=== PATIENT | female | born 1980 | race African-American/Black ===

== ENCOUNTER 2022-07-26 12:49 | Outpatient (CLI) | payer BC ==
[2022-07-26 14:02] LABS: Anion Gap 13 mmol/L (10-20); BUN (Urea Nitrogen) 15 mg/dL (7.0-18.7); Calc. Creatinine Clearance 0 mL/min (70-130); Calcium 9.3 mg/dL (7.8-10.44); Carbon Dioxide 26 mmol/L (22-29); Chloride 104 mmol/L (98-107); Estimated GFR 90; Glucose 89 mg/dL (70-105); Potassium 4.1 mmol/L (3.5-5.1); Sodium 139 mmol/L (136-145)
== END 2022-07-26 12:50 | disposition home or self-care (01) ==
LOC: CSHLAB 12:49
PROVIDERS: ATTEND Otolaryngology Plastic Surgery within the Head & Neck
DX: Z01.818 Encounter for other preprocedural examination (principal)
CPT/HCPCS: 80048; 85014; 93005; 93010

== ENCOUNTER 2022-07-31 06:40 | Observation (INO) | payer BC ==
[2022-07-31 09:47] VITALS: BMI 38.6
[2022-07-31] MEDS ORDERED: Midazolam HCl 2 mg/2 ml Vial ONE ×2 (10:17→10:53)
[2022-07-31 10:20] LABS: SARS-CoV-2 NAA Rapid Test Not Detected (NotDetected)
[2022-07-31] MEDS ORDERED: Rocuronium Bromide 10 MG/ML (10ML VIAL) ONE (10:53)
[2022-07-31] MEDS ORDERED: Ondansetron PF 4 MG/2 ML Vial ONE (10:53)
[2022-07-31] MEDS ORDERED: PROPOFOL 20 ML ONE ×2 (10:53→11:47)
[2022-07-31] MEDS ORDERED: Dexamethasone 4 mg/ml Vial ONE (10:53)
[2022-07-31] MEDS ORDERED: Fentanyl 250 MCG/5 ML VIAL ONE (10:53)
[2022-07-31] MEDS ORDERED: Lidocaine 1% PF 5 ML VIAL ONE (10:53)
[2022-07-31] MEDS ORDERED: CEFAZOLIN 1 GM VIAL ONE (11:04)
[2022-07-31] MEDS ORDERED: EPINEPHrine 1 MG/ML AMP ONE (11:33)
[2022-07-31] MEDS ORDERED: Fentanyl 100 MCG/2 ML VIAL ONE (12:02)
[2022-07-31] MEDS ORDERED: Ondansetron PF 4 MG/2 ML Vial IVP PRN (12:27)
[2022-07-31] MEDS ORDERED: Acetaminophen 325 MG TAB PO PRN (12:27)
[2022-07-31] MEDS ORDERED: clonazePAM 0.5 MG TAB PO PRN (12:32)
[2022-07-31] MEDS ORDERED: Gabapentin 300 MG CAP PO PRN (12:32)
[2022-07-31] MEDS ORDERED: oxyCODONE/Acetaminophen 5 mg/325 mg Tablet PO PRN (12:34)
[2022-07-31] MEDS ORDERED: HYDROmorphone 0.5 MG/0.5 ML SYRINGE ONE ×3 (13:02→13:59)
[2022-07-31] MEDS: oxyCODONE 5 MG TAB PO PRN ×2 (16:50→21:01)
[2022-07-31] MEDS: Acetaminophen 325 MG TAB PO PRN (21:00)
[2022-07-31] MEDS ORDERED: Calcitriol 0.25 MCG CAP PO SCH (21:00)
[2022-07-31] MEDS ORDERED: PARoxetine 20 MG TAB PO SCH (21:00)
[2022-08-01] MEDS: Acetaminophen 325 MG TAB PO PRN ×2 (01:03→05:31)
[2022-08-01] MEDS: oxyCODONE 5 MG TAB PO PRN ×2 (01:03→05:31)
[2022-08-01 08:07] VITALS: BP 117/64; TEMP 97.9
[2022-08-01] MEDS ORDERED: Amlodipine 5 MG TAB PO SCH (09:00)
[2022-08-01] MEDS ORDERED: Hydrochlorothiazide 25 MG TAB PO SCH (09:00)
[2022-08-01] MEDS ORDERED: Lisinopril 20 MG TAB PO SCH (09:00)
== END 2022-08-01 07:50 | disposition home or self-care (01) ==
LOC: CSHSDC 06:40 → CSHTELE 14:59
PROVIDERS: ADMIT Otolaryngology Plastic Surgery within the Head & Neck; ATTEND Otolaryngology Plastic Surgery within the Head & Neck
PROC: 0GTK0ZZ Resection of Thyroid Gland, Open Approach (ICD-10-PCS; principal; 2022-07-31)
DX: C73 Malignant neoplasm of thyroid gland (principal); E04.2 Nontoxic multinodular goiter; H65.23 Chronic serous otitis media, bilateral; J35.01 Chronic tonsillitis; Z20.822 Contact with and (suspected) exposure to COVID-19; I10 Essential (primary) hypertension; F41.9 Anxiety disorder, unspecified; Z79.899 Other long term (current) drug therapy
CPT/HCPCS: 82310; 83970; 88305; 88307; 88331; J0171; J0690; J1100; J1170; J2250; J2405; J2704; J3010; U0002

== ENCOUNTER 2022-08-03 12:52 | Inpatient (IN) | payer BC ==
[2022-08-03] MEDS ORDERED: Calcium Gluc 4.6 MEQ/10 ML (100 MG/ML) ONE ×2 (13:15→14:07)
[2022-08-03 13:28] LABS: #Basophils 0.1 10x3/uL (0.0-0.2); #Eosinphils 0.1 10x3/uL (0.0-0.5); #Monocytes 0.8 10x3/uL (0.0-1.1); #Neutrophils 4.6 10x3/uL (1.5-8.4); %Basophils 0.6 % (0.0-2.0); %Eosinophils 0.8 % (0.0-6.0); %Lymphocytes 40.8 % (18.0-47.0); %Monocytes 8.6 % (0.0-10.0); %Neutrophils 48.6 % (40.0-75.0); Hemoglobin 11.4 g/dL (12.0-15.5); Mean Corpuscular HGB CONC 33.6 g/dL (32.0-36.0); Mean Corpuscular Hemoglobin 28.6 pg (27.0-33.0); Mean Corpuscular Volume 85.2 fl (81.6-98.3); Mean Platelet Volume 9.8 fl (7.4-10.4); Platelet Count 310 10x3/uL (150-450); RBC Distribution Width 15.1 % (11.5-14.5); Red Blood Cell (RBC) Count 3.98 10x6/uL (3.90-5.03); White Blood Cell (WBC) Count 9.5 10x3/uL (3.5-10.5)
[2022-08-03 13:38] LABS: Phosphorus 5.8 mg/dL (2.3-4.7)
[2022-08-03 13:40] LABS: ALT (SGPT) 304 U/L (8-55); AST (SGOT) 242 U/L (5-34); Albumin 3.7 g/dL (3.5-5.0); Alkaline Phosphatase 172 U/L (40-110); Anion Gap 18 mmol/L (10-20); BUN (Urea Nitrogen) 11 mg/dL (7.0-18.7); Bilirubin, Total 0.7 mg/dL (0.2-1.2); Calc. Creatinine Clearance 0 mL/min (70-130); Carbon Dioxide 25 mmol/L (22-29); Chloride 100 mmol/L (98-107); Estimated GFR 84; Globulin 3.2 g/dL (2.4-3.5); Glucose 97 mg/dL (70-105); Magnesium 1.6 mg/dL (1.6-2.6); Potassium 4.1 mmol/L (3.5-5.1); Protein, Total 6.9 g/dL (6.0-8.3); Sodium 139 mmol/L (136-145)
[2022-08-03 13:45] LABS: Calcium 6.6 mg/dL (7.8-10.44)
[2022-08-03] MEDS ORDERED: Magnesium 2 GM/50 ML BAG (IN WATER) ONE (15:01)
[2022-08-03] MEDS ORDERED: Ondansetron PF 4 MG/2 ML Vial IVP PRN (16:09)
[2022-08-03] MEDS ORDERED: Acetaminophen 650 MG Suppository PR PRN (16:09)
[2022-08-03] MEDS ORDERED: Ondansetron ODT 4 MG TAB PO PRN (16:09)
[2022-08-03] MEDS ORDERED: Acetaminophen 325 MG TAB PO PRN (16:09)
[2022-08-03] MEDS: clonazePAM 0.5 MG TAB PO PRN (17:59)
[2022-08-03 20:08] VITALS: BMI 38.5
[2022-08-03] MEDS: PARoxetine 20 MG TAB PO SCH (20:32)
[2022-08-03] MEDS: Senokot S 8.6-50 MG TAB PO SCH (20:32)
[2022-08-03] MEDS: Acetaminophen/Codeine 30-300mg Tablet PO PRN (21:50)
[2022-08-04 05:17] LABS: #Eosinphils 0.2 10x3/uL (0.0-0.5); #Monocytes 0.7 10x3/uL (0.0-1.1); #Neutrophils 3.6 10x3/uL (1.5-8.4); %Basophils 0.5 % (0.0-2.0); %Eosinophils 2.1 % (0.0-6.0); %Lymphocytes 41.8 % (18.0-47.0); %Monocytes 8.7 % (0.0-10.0); %Neutrophils 46.4 % (40.0-75.0); Hemoglobin 10.6 g/dL (12.0-15.5); Mean Corpuscular HGB CONC 33.7 g/dL (32.0-36.0); Mean Corpuscular Hemoglobin 28.7 pg (27.0-33.0); Mean Corpuscular Volume 85.4 fl (81.6-98.3); Mean Platelet Volume 9.4 fl (7.4-10.4); Platelet Count 290 10x3/uL (150-450); RBC Distribution Width 14.9 % (11.5-14.5); Red Blood Cell (RBC) Count 3.69 10x6/uL (3.90-5.03); White Blood Cell (WBC) Count 7.8 10x3/uL (3.5-10.5)
[2022-08-04 05:19] LABS: ALT (SGPT) 245 U/L (8-55); AST (SGOT) 167 U/L (5-34); Albumin 3.3 g/dL (3.5-5.0); Alkaline Phosphatase 154 U/L (40-110); Anion Gap 18 mmol/L (10-20); BUN (Urea Nitrogen) 9 mg/dL (7.0-18.7); Bilirubin, Total 0.6 mg/dL (0.2-1.2); Calc. Creatinine Clearance 162 mL/min (70-130); Carbon Dioxide 26 mmol/L (22-29); Chloride 100 mmol/L (98-107); Estimated GFR 95; Glucose 95 mg/dL (70-105); Magnesium 1.7 mg/dL (1.6-2.6); Protein, Total 6.3 g/dL (6.0-8.3); Sodium 140 mmol/L (136-145)
[2022-08-04 05:28] LABS: Calcium 6.6 mg/dL (7.8-10.44)
[2022-08-04] MEDS ORDERED: CALCIUM GLUC 1 GM/NS 50 ML 1 GM in Premix Bag 1 BAG IVPB SCH (06:00)
[2022-08-04] MEDS ORDERED: Calcitriol 0.25 MCG CAP PO SCH (09:00)
[2022-08-04] MEDS ORDERED: Amlodipine 5 MG TAB PO SCH ×2 (09:00)
[2022-08-04] MEDS ORDERED: Lisinopril/Hydrochlorothiazide 20 mg/12.5 mg Tablet PO SCH (09:00)
[2022-08-04 09:36] LABS: Free T4 (Free Thyroxine) 0.9 ng/dL (0.70-1.48); Thyroid Stimulating Hormone 1.5108 uIU/mL (0.35-4.94)
[2022-08-04] MEDS: Lisinopril 20 MG TAB PO SCH (09:43)
[2022-08-04] MEDS: Hydrochlorothiazide 25 MG TAB PO SCH (09:43)
[2022-08-04] MEDS: Gabapentin 300 MG CAP PO SCH ×2 (09:44→20:58)
[2022-08-04] MEDS: Senokot S 8.6-50 MG TAB PO SCH ×2 (09:48→20:59)
[2022-08-04] MEDS: Calcitriol 0.25 MCG CAP PO SCH (20:58)
[2022-08-04] MEDS: Calcium Citrate 950 MG (200MG) TAB PO SCH (20:59)
[2022-08-04] MEDS: PARoxetine 20 MG TAB PO SCH (20:59)
[2022-08-04] MEDS: clonazePAM 0.5 MG TAB PO PRN (21:01)
[2022-08-04] MEDS: Acetaminophen/Codeine 30-300mg Tablet PO PRN (21:12)
[2022-08-05 05:09] LABS: #Eosinphils 0.2 10x3/uL (0.0-0.5); #Monocytes 0.6 10x3/uL (0.0-1.1); #Neutrophils 3.3 10x3/uL (1.5-8.4); %Basophils 0.6 % (0.0-2.0); %Eosinophils 3.2 % (0.0-6.0); %Lymphocytes 42.8 % (18.0-47.0); %Monocytes 7.7 % (0.0-10.0); %Neutrophils 45.1 % (40.0-75.0); Hemoglobin 10.6 g/dL (12.0-15.5); Mean Corpuscular HGB CONC 32.9 g/dL (32.0-36.0); Mean Corpuscular Hemoglobin 28.3 pg (27.0-33.0); Mean Corpuscular Volume 86.1 fl (81.6-98.3); Mean Platelet Volume 9.4 fl (7.4-10.4); Platelet Count 333 10x3/uL (150-450); RBC Distribution Width 14.9 % (11.5-14.5); Red Blood Cell (RBC) Count 3.74 10x6/uL (3.90-5.03); White Blood Cell (WBC) Count 7.2 10x3/uL (3.5-10.5)
[2022-08-05 05:22] LABS: ALT (SGPT) 199 U/L (8-55); AST (SGOT) 75 U/L (5-34); Albumin 3.4 g/dL (3.5-5.0); Alkaline Phosphatase 155 U/L (40-110); Anion Gap 17 mmol/L (10-20); BUN (Urea Nitrogen) 12 mg/dL (7.0-18.7); Bilirubin, Total 0.5 mg/dL (0.2-1.2); Calc. Creatinine Clearance 152 mL/min (70-130); Calcium 7.3 mg/dL (7.8-10.44); Carbon Dioxide 26 mmol/L (22-29); Chloride 102 mmol/L (98-107); Estimated GFR 88; Globulin 3.2 g/dL (2.4-3.5); Glucose 102 mg/dL (70-105); Magnesium 1.9 mg/dL (1.6-2.6); Potassium 3.8 mmol/L (3.5-5.1); Protein, Total 6.6 g/dL (6.0-8.3); Sodium 141 mmol/L (136-145)
[2022-08-05] MEDS ORDERED: CALCIUM GLUC 1 GM/NS 50 ML 1 GM in Premix Bag 1 BAG IVPB SCH (07:45)
[2022-08-05] MEDS: Lisinopril 20 MG TAB PO SCH (08:10)
[2022-08-05] MEDS: Calcium Citrate 950 MG (200MG) TAB PO SCH ×2 (08:10→20:01)
[2022-08-05] MEDS: Senokot S 8.6-50 MG TAB PO SCH ×2 (08:10→20:02)
[2022-08-05] MEDS: Calcitriol 0.25 MCG CAP PO SCH ×2 (08:11→20:01)
[2022-08-05] MEDS: Hydrochlorothiazide 25 MG TAB PO SCH (08:11)
[2022-08-05] MEDS: Gabapentin 300 MG CAP PO SCH ×2 (08:12→20:02)
[2022-08-05] MEDS: Acetaminophen/Codeine 30-300mg Tablet PO PRN (11:01)
[2022-08-05] MEDS: clonazePAM 0.5 MG TAB PO PRN (11:01)
[2022-08-05] MEDS: PARoxetine 20 MG TAB PO SCH (20:01)
[2022-08-06 04:13] LABS: #Basophils 0.1 10x3/uL (0.0-0.2); #Eosinphils 0.3 10x3/uL (0.0-0.5); #Monocytes 0.5 10x3/uL (0.0-1.1); %Basophils 0.8 % (0.0-2.0); %Eosinophils 3.7 % (0.0-6.0); %Lymphocytes 47.1 % (18.0-47.0); %Monocytes 6.4 % (0.0-10.0); Hemoglobin 10.5 g/dL (12.0-15.5); Mean Corpuscular HGB CONC 32.4 g/dL (32.0-36.0); Mean Corpuscular Hemoglobin 28.5 pg (27.0-33.0); Mean Corpuscular Volume 87.8 fl (81.6-98.3); Mean Platelet Volume 9.3 fl (7.4-10.4); Platelet Count 339 10x3/uL (150-450); RBC Distribution Width 14.9 % (11.5-14.5); Red Blood Cell (RBC) Count 3.69 10x6/uL (3.90-5.03); White Blood Cell (WBC) Count 7.3 10x3/uL (3.5-10.5)
[2022-08-06 04:27] LABS: ALT (SGPT) 150 U/L (8-55); AST (SGOT) 43 U/L (5-34); Albumin 3.3 g/dL (3.5-5.0); Alkaline Phosphatase 145 U/L (40-110); Anion Gap 17 mmol/L (10-20); BUN (Urea Nitrogen) 12 mg/dL (7.0-18.7); Bilirubin, Total 0.3 mg/dL (0.2-1.2); Calc. Creatinine Clearance 156 mL/min (70-130); Calcium 7.7 mg/dL (7.8-10.44); Carbon Dioxide 25 mmol/L (22-29); Chloride 104 mmol/L (98-107); Estimated GFR 92; Globulin 3.2 g/dL (2.4-3.5); Glucose 96 mg/dL (70-105); Magnesium 1.9 mg/dL (1.6-2.6); Protein, Total 6.5 g/dL (6.0-8.3); Sodium 142 mmol/L (136-145)
[2022-08-06] MEDS: Calcium Citrate 950 MG (200MG) TAB PO SCH ×2 (08:50→20:31)
[2022-08-06] MEDS: Gabapentin 300 MG CAP PO SCH ×2 (08:50→20:31)
[2022-08-06] MEDS: Calcitriol 0.25 MCG CAP PO SCH ×2 (08:50→20:31)
[2022-08-06] MEDS: Senokot S 8.6-50 MG TAB PO SCH ×2 (08:51→20:32)
[2022-08-06] MEDS: Hydrochlorothiazide 25 MG TAB PO SCH ×2 (08:51→13:36)
[2022-08-06] MEDS: Lisinopril 20 MG TAB PO SCH ×2 (08:51→13:36)
[2022-08-06] MEDS: PARoxetine 20 MG TAB PO SCH (20:32)
[2022-08-06] MEDS: Acetaminophen/Codeine 30-300mg Tablet PO PRN (20:32)
[2022-08-06] MEDS: clonazePAM 0.5 MG TAB PO PRN (20:32)
[2022-08-07 04:55] LABS: #Basophils 0.1 10x3/uL (0.0-0.2); #Eosinphils 0.2 10x3/uL (0.0-0.5); #Monocytes 0.5 10x3/uL (0.0-1.1); #Neutrophils 3.3 10x3/uL (1.5-8.4); %Basophils 0.8 % (0.0-2.0); %Eosinophils 3.1 % (0.0-6.0); %Lymphocytes 46.3 % (18.0-47.0); %Monocytes 6.2 % (0.0-10.0); %Neutrophils 42.3 % (40.0-75.0); Hemoglobin 10.6 g/dL (12.0-15.5); Mean Corpuscular HGB CONC 32.7 g/dL (32.0-36.0); Mean Corpuscular Hemoglobin 28.4 pg (27.0-33.0); Mean Corpuscular Volume 86.9 fl (81.6-98.3); Mean Platelet Volume 9.3 fl (7.4-10.4); Platelet Count 358 10x3/uL (150-450); RBC Distribution Width 14.6 % (11.5-14.5); Red Blood Cell (RBC) Count 3.73 10x6/uL (3.90-5.03); White Blood Cell (WBC) Count 7.8 10x3/uL (3.5-10.5)
[2022-08-07 04:59] LABS: ALT (SGPT) 137 U/L (8-55); AST (SGOT) 44 U/L (5-34); Albumin 3.5 g/dL (3.5-5.0); Alkaline Phosphatase 144 U/L (40-110); Anion Gap 13 mmol/L (10-20); BUN (Urea Nitrogen) 10 mg/dL (7.0-18.7); Bilirubin, Total 0.3 mg/dL (0.2-1.2); Calc. Creatinine Clearance 160 mL/min (70-130); Carbon Dioxide 27 mmol/L (22-29); Chloride 103 mmol/L (98-107); Estimated GFR 95; Globulin 2.7 g/dL (2.4-3.5); Glucose 100 mg/dL (70-105); Potassium 3.9 mmol/L (3.5-5.1); Protein, Total 6.2 g/dL (6.0-8.3); Sodium 139 mmol/L (136-145)
[2022-08-07] MEDS: Hydrochlorothiazide 25 MG TAB PO SCH (08:23)
[2022-08-07] MEDS: Gabapentin 300 MG CAP PO SCH (08:23)
[2022-08-07] MEDS: Calcium Citrate 950 MG (200MG) TAB PO SCH (08:23)
[2022-08-07] MEDS: Calcitriol 0.25 MCG CAP PO SCH (08:23)
[2022-08-07] MEDS: Lisinopril 20 MG TAB PO SCH (08:24)
[2022-08-07] MEDS: Senokot S 8.6-50 MG TAB PO SCH (08:24)
[2022-08-07 09:38] VITALS: BP 93/50; TEMP 97.9
[2022-08-08 10:36] LABS: Calcitriol (1,25 di-OH Vit D) 63.4 pg/mL (24.8-81.5)
== END 2022-08-07 10:23 | disposition home or self-care (01) | DRG 641 ==
LOC: CSHERS 12:52 → CSHTELE 15:56
PROVIDERS: ADMIT Internal Medicine; ATTEND Hospitalist
DX: E83.51 Hypocalcemia (principal); I10 Essential (primary) hypertension; E89.0 Postprocedural hypothyroidism; F41.9 Anxiety disorder, unspecified; Z79.899 Other long term (current) drug therapy; Z88.5 Allergy status to narcotic agent; Z88.0 Allergy status to penicillin; Z88.2 Allergy status to sulfonamides; Z88.8 Allergy status to other drugs, medicaments and biological substances
CPT/HCPCS: 36415; 80053; 82306; 82308; 82310; 82330; 82652; 83735; 83970; 84100; 84439; 84443; 85025; 88305; 88307; 88331; 93005; 96365; 96375; 96376; J0171; J0610; J0690; J1100; J1170; J2250; J2405; J2704; J3010; J3475; U0002